=== PATIENT | male | born 1960 | race African-American/Black ===

== ENCOUNTER 2016-07-08 10:19 | Observation (INO) | payer BC ==
[~2016-07-08] VITALS: Ht 188 cm; Wt 147.6 kg
[2016-07-08] VITALS (7 sets, daily range): BP systolic 136–170; BP diastolic 77–93; PULSE 64–82; RESP 18–20; TEMP 97.8–98.1; O2SAT 95–96
[~2016-07-08 10:19] MED LIST: ALLO300T2 PO; ATOR10TA PO; COLC1TAB7 PO; DICL75 PO; DOXA1 PO; METO50CR PO; PRIL20TA2 PO; SERO50TA PO; ZITH250T PO; ZOFR4TAB3 SL
[2016-07-08] MEDS: NS 1000P @30 MLS/HR (KVO) IV SCH (10:45)
[2016-07-08] MEDS ORDERED: ASPIRIN EC 81 MG TABEC PO SCH (10:45)
[2016-07-08] MEDS ORDERED: SACU1TAB PO (11:21)
[2016-07-08] MEDS ORDERED: ATOR40TA16 PO (11:21)
[2016-07-08] MEDS ORDERED: METO50TA11 PO (11:21)
[2016-07-08] MEDS ORDERED: CLOM50TA2 (11:21)
[2016-07-08] MEDS ORDERED: AMLO5TAB2 PO (11:21)
[2016-07-08 11:42] LABS: AUTOMATED NEUTROPHIL # 3.3 TH/MM3 (1.8-7.7); BASOPHIL % 0.5 % (0.0-2.0); EOSINOPHIL # 0.1 TH/MM3 (0-0.4); EOSINOPHIL % 2.6 % (0.0-4.0); HEMATOCRIT 45.9 % (39.0-51.0); HEMO FLAGS DIFF FINAL; LYMPH % 23.9 % (9.0-44.0); LYMPHOCYTE # 1.3 TH/MM3 (1.0-4.8); MEAN CELL VOLUME 84.6 FL (80.0-100.0); MEAN CORPUSCULAR HEMOGLOBIN 27.4 PG (27.0-34.0); MEAN CORPUSCULAR HGB CONC 32.4 % (32.0-36.0); PLATELET COUNT 224 TH/MM3 (150-450); RED BLOOD COUNT 5.43 MIL/MM3 (4.50-5.90); RED CELL DISTRIBUTION WIDTH 16.1 % (11.6-17.2); WHITE BLOOD COUNT 5.3 TH/MM3 (4.0-11.0)
[2016-07-08 11:51] LABS: APTT (PATIENT) 27.5 SEC (24.3-30.1); INTERNATIONAL NORMALIZED RATIO 1.1 RATIO
[2016-07-08 12:01] LABS: POTASSIUM 3.9 MEQ/L (3.5-5.1)
[2016-07-08] MEDS ORDERED: HEPARIN-NS/PF INJ 500 ML ONE (12:34)
[2016-07-08] MEDS ORDERED: HEPARIN SODIUM - IV 10,000 UNITS/10 ML VIAL ONE (13:06)
[2016-07-08] MEDS ORDERED: MIDAZOLAM HCL 2 MG/2 ML VIAL ONE (13:07)
[2016-07-08] MEDS ORDERED: CLOPIDOGREL 300 MG TAB ONE (13:17)
[2016-07-08] MEDS ORDERED: BACITRACIN OINT 0.9 GM PKT TOP ONE (13:30)
[2016-07-08] MEDS ORDERED: SODIUM CHLORIDE 0.9% FLUSH 10 ML FLUSH IV FLUSH PRN (13:30)
[2016-07-08] MEDS ORDERED: MISC INFORMATION XX ONE (13:30)
[2016-07-08] MEDS ORDERED: CLOPIDOGREL 300 MG TAB PO ONE (13:30)
[2016-07-08] MEDS ORDERED: TIROFIBAN INFUSION INJ 250 ML IV ONE (13:30)
--- NOTE | 2016-07-08 13:33 | CATHPROC ---
SPIRIT Navigation HIS Report Study Information Study Number Admission Scheduled Start Study Start 0904-07/08/2016 07/08/2016 Jul 08 2016 12:03PM Study Type [place] Service Left Heart Cath Cardiac Catheterization Referring Institution Admit Source Facility Department 1 Other [facility] - Police Communications Operator Physician and Clinical Staff Initial Avery Dumont Assistant Restaurant General Manager Meena Avendaño,RN Recorder Meena Sanford,RT(R) Scrub Marcin Rico RCIS(BS) Procedures Performed Procedure Location (Site) Vessel Name Coronary Angiograms LCA Left Coronary Coronary Angiograms RCA Right Coronary LV Gram-hand inj. LV LV Ventricle Stent OM1 Prox CIRC Wire insertion Fem Art (right) Femoral Art Wire insertion Fem Vein (right) Femoral Vein Equipment Time Rat Exterminator Description Size Mfg Part Number Used/Scraped 13:11 Periscope CRITICAL CARE WIRE, [email or web address] PROWATER 180CM 180CM [id number] Used 12:21 DAWSON [place] SWAN VERONIQUE CATHETER FR 7 [id number] Used TRANSDUCER, TRUWAVE 12:21 DAWSON FOUNTAIN * [id number] Used W/STOCKCOCK TRANSDUCER, TRUWAVE 12:21 DAWSON FOUNTAIN * [id number] Used W/STOCKCOCK 12:21 [employer] INDUSTRIES PACK, CCL CUSTOM * [id number] Used 12:21 [employer] PACER PEN, SKIN DUAL W/ RULER * [id number] Used [id number] 13:14 [employer] STENT, 3.0 9 INTEGRITY 3.0 9 Used *[id number] STENT, 3.0 9 RESOLUTE [id number] 13:12 MEDTRONIC 3.0 9 Used INTEGRITY RX *[id number] 13:15 [employer] MEDICAL 30 LY INDEFLATOR Used *[id number] 13:05 [employer] MEDICAL SHEATH, FR6.5 PRELUDE 11CM FR 6.5 [id number] Used *[id number] 12:21 [employer] MEDICAL WIRE, 3MMJ .035 180CM 180CM [id number] Used [id number] 12:21 NAMIC MANIFOLD, 2 PORT * Used *[id number] 12:21 NAMIC MANIFOLD, 4 PORT * Used *[id number] 12:48 [employer] OMNIPAQUE, 300 MG, 100ML 100ML [id number] Used 12:51 [employer]ED OMNIPAQUE, 300 MG, 100ML 100ML [id number] Used 12:51 [employer] OMNIPAQUE, 300 MG, 100ML 100ML [id number] Used 12:21 [employer]ED OMNIPAQUE, 350 MG, 100ML 100ML [id number] Used 12:21 [employer] BLANKET,WARM AIR CCL * [id number] Used 12:21 TERUMO MEDICAL SHEATH, FR4 TERUMO (10CM) FR 4 [id number] Used 12:52 [employer]UMO MEDICAL SHEATH, FR5 TERUMO (10CM) FR 5 [id number] Used 12:21 [employer]UMO MEDICAL SHEATH, FR7 TERUMO (10CM) FR 7 [id number] Used Equipment Model, Serial, Lot Number and Expiration Data Description Model Number Serial Number Lot Number Expiration Date SHEATH, FR6.5 PRELUDE 11CM [id number] 03-31-2019 STENT, 3.0 9 INTEGRITY [id number] 08-28-2017 History: Current Medications Medication Dosage/Unit Route Frequency Last Date/Time Taken ASA Statins (any) LOPRESSOR NORVASC History: Allergies Allergy Reaction Penicillin UNKNOWN History: Risk Factors Family History of Hypertension Dyslipidemia Previous [place] Previous Heart Failure Premature CAD Yes Yes No No No Prior Valve Prior PCI Prior CABG Surgery No No No Cerebrovascular Peripheral Artery Chronic Lung On Dialysis Diabetes Disease Disease Disease No No No No No History: Stress Tests Stress or Imaging Studies Performed Yes Standard Exercise Stress Test No Stress Echo No Stress Test SPECT Stress Test SPECT Result Stress Test SPECT Ischemia Risk/Extent Yes Positive High Stress Test CMR No Cardiac CTA Coronary Calcium Score No No History: Other Current Smoker No Labs Hgb (g/dl) Hct (%) RBC (MIL/MM3) WBC (l/cumm) Platelets (thousands) 12.00-18.00 37.00-55.00 4.80-6.20 4.80-10.80 140.00-450.00 14.9 45.9 5.4 5.3 224 Glucose (mg/dl) BUN (mg/dl) Creatinine (mg/dl) BUN:Creatinine (1:x) 60.00-110.00 8.00-20.00 0.10-9.00 10.00-20.00 101 11 1.5 7.3 Na (meq/l) K (meq/l) Cl (meq/l) CO2 (mmol/L) Ca (mg/dl) 138.00-146.00 3.80-5.10 101.00-111.00 23.00-30.00 9.00-10.50 141 3.9 106 28 8.9 PT (sec) INR (PTT:PT) 9.40-11.40 0.50-2.00 12 1.1 CPK-MB (ng/ML) 0.00-7.00 Not Drawn Medication Medication Total Dose (Bolus/Oral) Medication Total Dosage/Unit 1% XYLOCAINE 20 mL AGGRASTAT BOLUS 74 meq/kg ASPIRIN 81 mg HEPARIN 1300 units PLAVIX 600 mg VERSED 2 mg Medications (Bolus/Oral) Medication Time Given Dosage/Unit Administered By Reason 1% XYLOCAINE 07/08/2016 12:49:24 PM 20 mL Avery Naqvi 20 mL 1% XYLOCAINE given in lab by Avery Naqvi in Right Groin via Subcutaneous. HEPARIN 07/08/2016 1:07:49 PM 1300 units Meena Avendaño 1300 units HEPARIN given in lab by Meena Avendaño RN via Peripheral IV. VERSED 07/08/2016 1:08:30 PM 2 mg Meena Avendaño 2 mg VERSED given in lab by Meena Avendaño RN via Peripheral IV. PLAVIX 07/08/2016 1:28:32 PM 600 mg Meena Avendaño 600 mg PLAVIX given in lab by Meena Avendaño RN via Oral. ASPIRIN 07/08/2016 1:28:53 PM 81 mg Meena Avendaño 81 mg ASPIRIN given in lab by Meena Avendaño RN via Subcutaneous. AGGRASTAT BOLUS 07/08/2016 1:29:02 PM 74 meq/kg Meena Avendaño 74 meq/kg AGGRASTAT BOLUS given in lab by Meena Avendaño RN via Peripheral IV. Amount given = 65602. 2 meq. Medication (Drip) Medication Time Given Dosage/Unit Concentration/Unit Diluent (ml) Solution AGGRASTAT DRIP 07/08/2016 1:29:10 PM 0.149 mcg/kg/min 12.5 mg 250 NaCl .9 0.149 mcg/kg/min AGGRASTAT DRIP given in lab by Meena Avendaño RN via Peripheral IV. Pump/Drip Flow = 26.6 ml/hr using NaCl .9 with a concentration of 12.5 mg in 250 ml. IV Solutions 07/08/2016 12:27:06 PM 0 mL (IV) NaCl .9 Patient arrived on IV Solutions in Right Hand via Peripheral IV. Pump/Drip Flow = 20 ml/hr using NaCl .9. Initial Case Assessment Cardiovascular HR Rhythm NIBP Chest Pain 68 REG 153/101 0 Edema Present Skin color Skin Moderate Normal Warm Circulatory - Right Pulses Dorsalis Pedis Femoral 1 1 Scale (0,1,2,3,4,d) Circulatory - Left Pulses Dorsalis Pedis Femoral 2 1 Scale (0,1,2,3,4,d) Circulatory - Lower Extremities Color Lower Right Color Lower Left Normal Normal Neurological State Oriented to time-place- Alert Moves all extremities person Respiration - General Respiration Rate SpO2 (%) (B/min) 8 95 Final Case Assessment Cardiovascular HR Rhythm NIBP Chest Pain 75 REG 149/80 0 Edema Present Skin color Skin Moderate Normal Warm Circulatory - Right Pulses Dorsalis Pedis Femoral 2 1 Scale (0,1,2,3,4,d) Circulatory - Left Pulses Dorsalis Pedis Femoral 1 1 Scale (0,1,2,3,4,d) Circulatory - Lower Extremities Color Lower Right Color Lower Left Normal Normal Neurological State Oriented to time-place- Alert Moves all extremities person Respiration - General Respiration Rate SpO2 (%) (B/min) 10 95 Chronological Log Time Study Chronological Log 12:26:39 Patient arrived via Bed. 12:26:42 Patient Name, D.O.B, / Armband Verified By R.N. 12:26:42 Consent signed by the physician and the patient and verified by the Police Communications Operator staff. 12:26:43 Pre-op and post- op instructions given; patient acknowledges understanding of instructions. 12:26:44 Verbal Stimulation=2 Physical Stimulation=2 Airway=2 Respiration=2 TOTAL=8. (0=absent, 1=li mited, 2=present) 12:26:47 Patient has been NPO for Less than 6Hrs. 12:26:48 Skin Breakdown-NONE 12:26:49 Patient Warmer Placed on the Table. 12:26:52 A # 20 IV was noted in the Hand (right). Grade = 0 12:27:06 Patient arrived on IV Solutions in Right Hand via Peripheral IV. Pump/Drip Flow = 20 ml/hr using NaCl .9. 12:27:31 History and physical on the chart or being dictated. Assessment: Initial Case, HR=68 BPM, Rhythm=REG, ZSAY=956/101 mmhg, Chest Pain=0, Edema=Mod, Color=Normal, Skin = Warm Right Pulses: Alberto Ped=1, Femoral=1 Left Pulses: Alberto Ped=2, Femoral=1 12:27:32 Lower Right Extremities: Color=Normal Lower Left Extremities: Color=Normal Neurological: State=Alert, Ox3, PEARL Respiration: Resp=8 B/min, SpO2=95 % 12:31:33 Bilateral groins prepped with 2% chlorhexidine, and with a 3 min. waiting time. Vitals capture started with the following parameters, Patient=Adult, Interval=15 min, Initial P flyogfu=797 mmHg, 12:32:14 Deflation Rate=5 mmHg 12:32:48 HR=67 bpm, EKJW=258/96 mmhg, SpO2=96.0 %, Resp=12 B/min, Pain=0, Evette=10, Vanegas=2 12:33:27 Reference ECG taken 12:37:53 HR=75 bpm, XTYZ=064/101 mmhg, SpO2=95.0 %, Resp=11 B/min, Evette=10 12:41:13 MD paged 12:42:50 HR=67 bpm, SUGY=644/101 mmhg, SpO2=95.0 %, Resp=9 B/min, Evette=10 12:44:55 Pressure channel 1 zeroed. 12:46:17 MD arrived. 12:47:53 HR=70 bpm, UHQJ=583/94 mmhg, SpO2=94.0 %, Resp=20 B/min, Evette=10 Time Out. Correct patient, correct procedure,correct physician, ,power injector not loaded with contrast with surgical 12:48:47 team present. Time Out Concurred by MD, individual staff and GENETICS PHYSICIAN in procedure 12:49:14 Case Start 12:49:16 Verbal Stimulation=2 Physical Stimulation=2 Airway=2 Respiration=2 TOTAL=8. (0=absent, 1=li mited, 2=present) 12:49:24 20 mL 1% XYLOCAINE given in lab by Avery Naqvi in Right Groin via Subcutaneous. 12:51:16 Access site was Right Femoral Vein. 12:51:23 A wire was inserted via Fem Vein (right). 12:51:38 A SHEATH, FR5 TERUMO (10CM) FR 5 was advanced into the Fem Vein (right) using the Percutane ous technique. 12:52:32 Access site was Right Femoral Artery.RT 12:52:38 A wire was inserted via Fem Art (right). 12:52:39 A SHEATH, FR4 TERUMO (10CM) FR 4 was advanced into the Fem Art (right) using the Percutaneo us technique. 12:52:52 HR=74 bpm, IMME=332/76 mmhg, SpO2=94.0 %, Resp=10 B/min, Evette=10 12:53:32 Saturation: Site=Ao (Aorta) , O2=95.5 %, Hgb=14.9 gm/dl, Condition=Condition 1. Used in north culation. Recorded Pressure: PCW, HR=65, Condition=Condition 1 12:54:32 (Pulmonary Capillary Wedge) PCW Recorded Pressure: MPA, HR=64, Condition=Condition 1 12:54:52 (Main Pulmonary Artery) MPA 21/12/16 12:55:50 Saturation: Site=PA (Pulmonary Artery) , O2=73.2 %, Hgb=14.9 gm/dl, Condition=Condition 1. Used in calculation. Recorded Pressure: RV, HR=58, Condition=Condition 1 12:55:57 (Right Ventricle) RV Recorded Pressure: RA, HR=62, Condition=Condition 1 12:56:15 (Right Atrium) RA 12:56:53 Saturation: Site=RA (Right Atrium) , O2=71.5 %, Hgb=14.9 gm/dl, Condition=Condition 1. Used in calculation. 12:57:07 Martin Veronique Catheter Removed A JR 4.0 INFINITI CATHETER FR 4 was advanced over a wire. OMNIPAQUE, 350 MG, 100ML 100ML was us ed for 12:57:38 injections. Recorded Pressure: LV, HR=60, Condition=Condition 1 12:57:57 (Left Ventricle) LV 121/11/21 12:58:14 The LV was manually injected with 10 cc's and visualized. OMNIPAQUE, 350 MG, 100ML 100ML us ed. 12:58:26 HR=67 bpm, HJPK=695/71 mmhg, SpO2=93.0 %, Resp=22 B/min, Evette=10 Recorded Pressure: LV, Ao, HR=68, Condition=Condition 1 12:58:27 (Left Ventricle) LV 115/8/9, (Aorta) Ao 112/73/90 12:59:03 The RCA was injected and visualized at various angles. OMNIPAQUE, 350 MG, 100ML 100ML used . Recorded Pressure: Ao, HR=62, Condition=Condition 1 12:59:13 (Aorta) Ao 110/77/93 13:00:01 Catheter was removed A JL 5.0 INFINITI CATHETER FR 4 was advanced over a wire. OMNIPAQUE, 350 MG, 100ML 100ML was us ed for 13:00:03 injections. 13:01:24 The LCA was injected and visualized at various angles. OMNIPAQUE, 350 MG, 100ML 100ML used . 13:02:11 Catheter was removed 13:03:21 HR=70 bpm, SHKZ=813/79 mmhg, SpO2=94.0 %, Resp=19 B/min, Evette=10 A SHEATH, FR6.5 PRELUDE 11CM FR 6.5 was exchanged in the Fem Art (right). This was necessary in order to 13:07:39 accomodate a larger catheter. 13:07:49 1300 units HEPARIN given in lab by Meena Avendaño, MARCIAL via Peripheral IV. 13:07:51 HR=69 bpm, CTAJ=775/70 mmhg, SpO2=95.0 %, Resp=12 B/min, Evette=10 13:08:30 2 mg VERSED given in lab by Meena Avendaño, RN via Peripheral IV. A XB 4.0 GUIDE CATHETER FR 6 was advanced over a wire. OMNIPAQUE, 350 MG, 100ML 100ML was used for 13:10:26 injections. 13:10:57 A WIRE, ASAHI PROWATER 180CM 180CM was inserted via Fem Art (right). 13:13:21 HR=70 bpm, LIGH=017/85 mmhg, SpO2=95.0 %, Resp=18 B/min, Evette=10 13:14:06 Interventional wire has crossed the lesion An STENT, 3.0 9 INTEGRITY 3.0 9 Bare Metal Stent was inserted through a XB 4.0 GUIDE CATHETER F R 6 over a 13:14:16 WIRE, ASAHI PROWATER 180CM 180CM. A STENT, 3.0 9 INTEGRITY 3.0 9 was deployed using a 30 LY INDEFLATOR at 14 atmospheres for 30 seconds in the 13:14:57 OM1 Prox. 13:16:02 Delivery device removed 13:17:20 Wire removed 13:17:23 Catheter was removed 13:17:34 Case End 13:17:49 HR=76 bpm, QXLX=057/89 mmhg, SpO2=96.0 %, Resp=7 B/min, Evette=10 13:18:23 ACT (Normal Range 90-180) = 263 Assessment: Final Case, HR=75 BPM, Rhythm=REG, DGBH=289/80 mmhg, Chest Pain=0, Edema=Mod, Color =Normal, Skin = Warm Right Pulses: Alberto Ped=2, Femoral=1 Left Pulses: Alberto Ped=1, Femoral=1 13:22:53 Lower Right Extremities: Color=Normal Lower Left Extremities: Color=Normal Neurological: State=Alert, Ox3, [place]AR[place] Respiration: Resp=10 B/min, SpO2=95 % 13:22:54 HR=75 bpm, GOHD=648/80 mmhg, SpO2=97.0 %, Resp=8 B/min, Evette=10 13:28:32 HR=74 bpm, YTXI=605/90 mmhg, SpO2=97.0 %, Resp=9 B/min, Evette=10 13:28:32 600 mg PLAVIX given in lab by Meena Avendaño, MARCIAL via Oral. 13:28:49 Vitals capture stopped. 13:28:53 81 mg ASPIRIN given in lab by Meena Avendaño, MARCIAL via Subcutaneous. 13:29:02 74 meq/kg AGGRASTAT BOLUS given in lab by Meena Avendaño, RN via Peripheral IV. Amount give n = 69753.2 meq. 0.149 mcg/kg/min AGGRASTAT DRIP given in lab by Meena Avendaño, MARCIAL via Peripheral IV. Pump/Drip Flow = 26.6 13:29:10 ml/hr using NaCl .9 with a concentration of 12.5 mg in 250 ml. 13:30:07 Catheter(s) removed without difficulty 13:30:09 In the Fem Art (right) the SHEATH, FR6.5 PRELUDE 11CM FR 6.[address] by Marcin Marie RCIS(BS). 13:30:26 In the Fem Vein (right) the SHEATH, FR5 TERUMO (10CM) FR [address] by Marcin Rico RCIS(BS). 13:30:42 Sterile dressing applied to site 13:30:43 No case complications noted. 13:30:44 Cine recording checked. 13:30:45 Bedside Report will be given. 13:30:46 Implantable Device card placed in patient's chart. 13:30:52 Contrast Scanned 13:30:55 A Left and Right Heart Cath was performed. 13:31:09 Patient moved to stretcher 13:31:11 Clinical correlaton risk stratification. End Study - Contrast Media Used In Study Contrast Total Opened (mL) Total Used (mL) Total Wasted (mL) Omnipaque 100 100 0 End Study - Maximum Contrast Load Max Contrast Load (mL) 496.1 End Study - Radiation Exposure Fluoro Time (minutes) 4.7 End Study - Patient Disposition Complications Transferred To Interventional Outcome No Outpatient Bed successful
[2016-07-08] MEDS ORDERED: ASPIRIN 81 MG CHEW TAB ONE (13:35)
[2016-07-08] MEDS: TIROFIBAN INFUSION INJ 250 ML IV SCH ×2 (13:45→22:38)
[2016-07-08] MEDS ORDERED: IOHEXOL 350 MG/ML 50 ML BTL (for Cath Lab) OTHER ONE (14:35)
--- NOTE | 2016-07-08 19:57 | EKG ---
Date Performed: 07/08/2016 Time Performed: 11:35:04 PTAGE: 56 years EKG: Sinus rhythm Anterior T wave changes are nonspecific Borderline ECG NO PREVIOUS TRACING DOCTOR: Loraine Hayes Interpretating Date/Time 07/08/2016 19:56:35
[2016-07-08] MEDS ORDERED: ATORVASTATIN 10 MG TAB PO SCH (21:00)
[2016-07-08] MEDS: SODIUM CHLORIDE 0.9% FLUSH 10 ML FLUSH IV FLUSH SCH (21:00)
[2016-07-08] MEDS: CARVEDILOL 3.125 MG TAB PO SCH (21:25)
[2016-07-09] VITALS (11 sets, daily range): BP systolic 125–143; BP diastolic 66–91; PULSE 54–79; RESP 18; TEMP 98–98.7; O2SAT 93–96
[2016-07-09 04:50] LABS: AUTOMATED NEUTROPHIL # 5.6 TH/MM3 (1.8-7.7); BASOPHIL % 0.5 % (0.0-2.0); EOSINOPHIL # 0.2 TH/MM3 (0-0.4); EOSINOPHIL % 2.2 % (0.0-4.0); HEMATOCRIT 43.2 % (39.0-51.0); HEMO FLAGS DIFF FINAL; LYMPH % 17.5 % (9.0-44.0); LYMPHOCYTE # 1.4 TH/MM3 (1.0-4.8); MEAN CELL VOLUME 83.5 FL (80.0-100.0); MEAN CORPUSCULAR HEMOGLOBIN 27.4 PG (27.0-34.0); MEAN CORPUSCULAR HGB CONC 32.9 % (32.0-36.0); MONO % 9.1 % (0.0-8.0); NEUT % 70.7 % (16.0-70.0); PLATELET COUNT 227 TH/MM3 (150-450); RED BLOOD COUNT 5.17 MIL/MM3 (4.50-5.90); WHITE BLOOD COUNT 7.9 TH/MM3 (4.0-11.0)
[2016-07-09 05:04] LABS: BICARBONATE 25.4 MEQ/L (21.0-32.0); POTASSIUM 3.6 MEQ/L (3.5-5.1)
[2016-07-09 05:07] LABS: HDL CHOLESTEROL 26.3 MG/DL (40.0-60.0)
[2016-07-09 05:21] LABS: CKMB 3.5 NG/ML (0.5-3.6)
[2016-07-09] MEDS ORDERED: PANTOPRAZOLE SOD 20 MG DELAYED RELEASE TAB PO ONE (08:15)
[2016-07-09] MEDS: SODIUM CHLORIDE 0.9% FLUSH 10 ML FLUSH IV FLUSH SCH (08:44)
[2016-07-09] MEDS: CARVEDILOL 3.125 MG TAB PO SCH (08:44)
[2016-07-09] MEDS ORDERED: ASPIRIN 81 MG CHEW TAB PO SCH (09:00)
[2016-07-09] MEDS ORDERED: CLOPIDOGREL 75 MG TAB PO SCH (09:00)
[2016-07-09] MEDS ORDERED: RAMIPRIL 2.5 MG CAP PO SCH (09:00)
[2016-07-09] MEDS: NS 1000P @30 MLS/HR (KVO) IV SCH (10:45)
[2016-07-09] MEDS ORDERED: PLAV75TA29 PO (12:48)
--- NOTE | 2016-07-09 15:47 | EKG ---
Date Performed: 07/08/2016 Time Performed: 13:55:18 PTAGE: 56 years EKG: Sinus rhythm Anterior T wave changes are nonspecific Borderline ECG PREVIOUS TRACING : 07/08/2016 11.35 Compared to prior tracing no significant change DOCTOR: Avery Naqvi Interpretating Date/Time 07/09/2016 15:44:58
--- NOTE | 2016-07-09 15:48 | EKG ---
Date Performed: 07/09/2016 Time Performed: 06:26:06 PTAGE: 56 years EKG: Sinus rhythm Anterolateral T wave changes are nonspecific Borderline ECG PREVIOUS TRACING : 07/08/2016 13.55 Compared to prior tracing no significant change DOCTOR: Avrey Naqvi Interpretating Date/Time 07/09/2016 15:45:06
--- NOTE | 2016-07-09 19:14 | MR ---
cc: TIMMY PEARSON M.D. DATE: 07/09/2016. PROCEDURES PERFORMED: 1. Right heart catheterization. 2. Left heart catheterization. 3. Left ventriculography. 4. Coronary angiography. 5. Direct percutaneous coronary intervention with bare-metal stent of the proximal first obtuse marginal vessel. INDICATIONS FOR THE PROCEDURE: Cardiomyopathy, congestive heart failure, high-risk nuclear stress test, unstable angina, [place] Cardiovascular Society class IV angina and [place] Heart Association class IV congestive heart failure. DESCRIPTION OF THE PROCEDURE IN DETAIL: The patient was brought to the cardiac catheterization laboratory and prepped and draped in the usual sterile fashion. 10 cc of 1% lidocaine was used to locally anesthetize the right common femoral artery. A 4-Argentine sheath was placed in the right common femoral artery and a 5-Argentine sheath placed in the right common femoral vein. Right heart catheterization was performed first with the following findings: Wedge pressure was 26/24-21. PA pressure 23/10-17. RV pressure 28/2-8. RA pressure 17/12-9. The FA sat was 95.5% on room air. The PA sat was 73.2%. The RA sat was 71.5%. The cardiac output by Anthony was 7.4 liters per minute. Cardiac index by Anthony was 2.8 liters per meters squared per minute. SVR is 874 dynes. Left heart catheterization was then performed with a 4-Argentine JR4 and JL5 diagnostic catheters with the following findings: LV pressure was 110/10-15. Ejection fraction 45%. Mild left ventricular enlargement fluoroscopically. The right coronary artery is dominant and has mild diffuse disease in the proximal to mid-segment up to 10% to 20% angiographically. 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 The left main coronary artery has no significant disease angiographically. The left circumflex vessel has mild diffuse disease in the proximal segment up to 10% angiographically. The mid-segment has a focal 40% to 50% stenosis. There is a medium-sized ramus intermedius vessel which has an ostial 30% to 40% stenosis and proximal to mid 40% stenosis. It is a medium-sized vessel. The first obtuse marginal vessel comes off the proximal to mid AV groove of the left circumflex and has a proximal 95% stenosis. It is a 3.0 mm diameter vessel. The left anterior descending has a long tubular 50% stenosis in the mid segment. Just beyond a small diagonal artery, there is a 60% stenosis. The first diagonal artery is a small vessel, probably 1.5 mm in diameter with a 95% proximal stenosis. The second diagonal artery is a small to medium-sized vessel and there is no significant obstructive disease. The left anterior descending is transapical. Also note there is a distal posterolateral artery that has off the distal left AV groove and left circumflex which has an ostial proximal 50% to 60% stenosis. DISCUSSION: At this point in time, the patient states he has resting angina, which is [place] Cardiovascular Society class IV angina. I suspect the culprit is the 95% proximal stenosis in the first obtuse marginal vessel. I cannot rule out functionally significant obstruction in the posterolateral artery and the left anterior descending. He has a creatinine of 1.45; therefore, I do think it is medically necessary to stent the culprit lesion and stage FFR evaluation of the left anterior descending and possibly the posterolateral artery on a separate occasion. Note, the patient was given 500 of normal saline bree-procedurally and prior to intervention. The patient was given 7 units / kg of heparin. ACT is 263. A 6-Argentine sheath was exchanged for a 4-Argentine sheath. A 6-Argentine XB 4.0 guide 0.014 Prowater guidewire and a 3.0 x 9 Integrity stent were placed across the lesion in the first obtuse marginal vessel. Note, there was complete obstruction of the contrast flow around the stent while it was positioned across the lesion suggesting high-grade lesion. I needed 14 atmospheres of pressure to fully deploy the stent due to vessel noncompliance. The stenosis went from 95% to 0% with SURESH III flow. The patient did have his chest pain reproduced with balloon inflation completely relieved after balloon deflation. CONCLUSIONS: 1. [place] Cardiovascular Society class IV unstable angina, culprit 95% stenosis in the proximal obtuse marginal vessel as detailed above. 2. Moderate to severe disease in the left anterior descending and posterolateral arteries as detailed above up to 50% to 60% angiographically. 3. Mildly reduced left ventricular systolic function of 45%. 4. 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 5. The patient was given 100 cc of contrast throughout the entire procedure and pre-treated with 500 of normal saline. RECOMMENDATIONS: 1. Recommend 600 of Plavix p.o. load and then 75 milligrams a day for twelve to fifteen months. 2. Aspirin 162 daily. 3. Will bolus with another 500 cc of normal saline. 4. Also note, the pressure wave forms were very difficult to interpret due to a significant respiratory variation with inspiration and expiration. LV pressures were as low as 5 and 8 with inspiration and as high as low 20s with expiration therefore making determination of the pressures difficult. 5. Otherwise, recommend medical management of coronary artery disease and cardiac risk factor modification. MD TERRANCE Saldivar/AMARILYS /1:25 PM /6:53 PM
== END 2016-07-09 13:20 | disposition home or self-care (01) ==
LOC: HDOC 10:19 → HDIC 10:23 → HDOC 16:18 → HSDI 16:18 → HCIS 16:35
PROVIDERS: ADMIT Internal Medicine Interventional Cardiology; ATTEND Internal Medicine Interventional Cardiology
DX: I25.110 Atherosclerotic heart disease of native coronary artery with unstable angina pectoris (principal); I11.0 Hypertensive heart disease with heart failure; I50.9 Heart failure, unspecified; I42.9 Cardiomyopathy, unspecified; I27.2 Other secondary pulmonary hypertension; M10.9 Gout, unspecified
CPT/HCPCS: 80048; 80061; 82550; 82552; 82810; 85002; 85025; 85610; 85730; 92920; 92928; 93005; 93460; C1769; C1876; C1887; C1893; G0378; J1644; J2250; J3246; J7030; Q9967

== ENCOUNTER 2016-07-28 10:21 | Day surgery (SDC) | payer BC ==
[~2016-07-28] VITALS: Ht 188 cm; Wt 150.3 kg
[~2016-07-28 10:21] MED LIST changes: -ALLO300T2 PO; +AMLO5TAB2 PO; -ATOR10TA PO; +ATOR40TA16 PO; +CLOM50TA2; -COLC1TAB7 PO; -DICL75 PO; -DOXA1 PO; -METO50CR PO; +METO50TA11 PO; +PLAV75TA29 PO; -PRIL20TA2 PO; +SACU1TAB PO; -SERO50TA PO; -ZITH250T PO; -ZOFR4TAB3 SL
[2016-07-28] MEDS ORDERED: ASPIRIN 81 MG CHEW TAB PO SCH (11:00)
[2016-07-28] MEDS ORDERED: ALLO300T2 PO (11:12)
[2016-07-28] MEDS ORDERED: ASPI81CH CHEW (11:12)
[2016-07-28] MEDS ORDERED: FEXO15TA PO (11:12)
[2016-07-28] MEDS ORDERED: COLC1CAP3 PO (11:12)
[2016-07-28] MEDS ORDERED: BENA20TA PO (11:12)
[2016-07-28 11:22] LABS: AUTOMATED NEUTROPHIL # 3.7 TH/MM3 (1.8-7.7); BASOPHIL % 0.6 % (0.0-2.0); EOSINOPHIL # 0.2 TH/MM3 (0-0.4); EOSINOPHIL % 3.5 % (0.0-4.0); HEMATOCRIT 46.8 % (39.0-51.0); HEMO FLAGS DIFF FINAL; LYMPH % 21.5 % (9.0-44.0); LYMPHOCYTE # 1.2 TH/MM3 (1.0-4.8); MEAN CELL VOLUME 83.8 FL (80.0-100.0); MEAN CORPUSCULAR HEMOGLOBIN 26.6 PG (27.0-34.0); MEAN CORPUSCULAR HGB CONC 31.8 % (32.0-36.0); MONO % 10.6 % (0.0-8.0); NEUT % 63.8 % (16.0-70.0); PLATELET COUNT 251 TH/MM3 (150-450); RED BLOOD COUNT 5.59 MIL/MM3 (4.50-5.90); RED CELL DISTRIBUTION WIDTH 16.5 % (11.6-17.2); WHITE BLOOD COUNT 5.8 TH/MM3 (4.0-11.0)
[2016-07-28] MEDS ORDERED: AMLO5 PO (11:22)
[2016-07-28] MEDS ORDERED: DICL75TA PO (11:22)
[2016-07-28] MEDS ORDERED: SACU1TAB4 PO (11:22)
[2016-07-28] MEDS ORDERED: ZANTTAB PO (11:22)
[2016-07-28] MEDS ORDERED: CETI10CA3 (11:22)
[2016-07-28] MEDS ORDERED: DOXA1TAB35 PO (11:23)
[2016-07-28 11:25] VITALS: BP 150/89; PULSE 71; RESP 18; TEMP 98.1; O2SAT 94
[2016-07-28 11:45] LABS: BICARBONATE 27.2 MEQ/L (21.0-32.0); POTASSIUM 4.1 MEQ/L (3.5-5.1)
[2016-07-28 12:03] LABS: PROTHROMBIN TIME - PATIENT 11.4 SEC (9.8-11.6)
[2016-07-28] MEDS ORDERED: IOHEXOL 350 MG/ML 100 ML BTL (for Cath Lab) OTHER ONE (12:14)
[2016-07-28] MEDS ORDERED: ADENOSINE STRESS TEST INJ 90 MG/30 ML VIAL ONE ×2 (12:20→13:29)
[2016-07-28] MEDS ORDERED: HEPARIN-NS/PF INJ 500 ML ONE (12:20)
[2016-07-28] MEDS ORDERED: HEPARIN SODIUM - IV 10,000 UNITS/10 ML VIAL ONE (12:31)
[2016-07-28] MEDS ORDERED: MIDAZOLAM HCL 2 MG/2 ML VIAL ONE (12:41)
[2016-07-28] MEDS ORDERED: SODIUM NITROPRUSSIDE 50 MG/2 ML VIAL ONE (13:10)
[2016-07-28] MEDS: TIROFIBAN INFUSION INJ 250 ML IV SCH ×2 (13:57→19:39)
[2016-07-28] MEDS ORDERED: MISC INFORMATION XX ONE (14:00)
[2016-07-28] MEDS ORDERED: SODIUM CHLORIDE 0.9% FLUSH 10 ML FLUSH IV FLUSH PRN (14:00)
--- NOTE | 2016-07-28 14:01 | CATHPROC ---
[employer] HIS Report Study Information Study Number Admission Scheduled Start Study Start 1025-17 07/28/2016 07/28/2016 Jul 28 2016 12:15PM Study Type [place] [facility] Left Heart Cath Cardiac Catheterization Referring Institution Admit Source Facility Department 1 Other [facility] - Director Of Rehabilitation Physician and Clinical Staff Initial Avery Dumont Bleach Mixer Sherley Dawson RN Other cathlab, cathlab Recorder Meena Sanford,RT(R) Scrub Anthony Cotter RCIS(BS) Procedures Performed Procedure Location (Site) Vessel Name Coronary Angiograms LCA Left Coronary Coronary Angiograms RCA Right Coronary Drug Eluting Inflatio LAD Dist Left Coronary LV Gram-hand inj. LV LV Ventricle Stent LAD Mid Left Coronary Wire insertion Fem Art (right) Femoral Art Equipment Time Hotel Assistant Manager Description Size Mfg Part Number Used/Scraped CATHETER, FR5 SWAN VERONIQUE 12:53 DAWSON DAWSON FR 5 [id number] *[id number] Used MONITOR TRANSDUCER, TRUWAVE [id number] 12:17 DAWSON DAWSON * Used W/STOCKCOCK *[id number] *[id number] *[id number] *[id number] 12:17 Vettro INDUSTRIES PACK, CCL CUSTOM * Used *[id number] 12:17 [employer]ettro PACER PEN, SKIN DUAL W/ RULER * Used *[id number] 13:16 MEDTRONIC STENT, 3.0 12 INTEGRITY 3.0 12 Used *[id number] 13:26 MEDTRONIC STENT, 3.5 22 INTEGRITY 3.5 22 Used *[id number] 13:18 [employer] MEDICAL 30 LY INDEFLATOR Used *[id number] 12:16 [employer] MEDICAL PACK, ANGIOPLASTY * [id number] Used 12:51 [employer] MEDICAL SHEATH, FR5.5 PRELUDE 11CM FR 5 [id number] 12:17 [employer] MEDICAL SHEATH, FR6.5 PRELUDE 11CM FR 6.5 038ACT Used *[id number] 12:17 [employer] MEDICAL WIRE, 3MMJ .035 180CM 180CM Used *[id number] 12:17 NAMIC MANIFOLD, 4 PORT * Used *[id number] 12:17 [employer]COMED OMNIPAQUE, 350 MG, 150ML 150ML [id number] Used [id number] 12:17 [facility] BLANKET,WARM AIR CCL * Used *[id number] 13:02 [place] PRIME WIRE, VERRATA 185CM 185CM [id number] *[id number] Used Equipment Model, Serial, Lot Number and Expiration Data Description Model Number Serial Number Lot Number Expiration Date PRIME WIRE, VERRATA 185CM [id number] 05-30-2019 STENT, 3.0 12 INTEGRITY [id number] 03-18-2018 STENT, 3.5 22 INTEGRITY [id number] 05-14-2017 History: Current Medications Medication Dosage/Unit Route Frequency Last Date/Time Taken Beta Jamil ASA PLAVIX History: Allergies Allergy Reaction Penicillin UNKNOWN History: Risk Factors Family History of Hypertension Dyslipidemia Previous NC Previous Heart Failure Premature CAD Yes Yes Yes No Yes Prior Valve Prior PCI Prior PCIDate Prior CABG Surgery No Yes 07/08/2016 No Cerebrovascular Peripheral Artery Chronic Lung On Dialysis Diabetes Disease Disease Disease No No No No No History: Symptoms/Diagnosis Selection Items SOB History: CV Disease Selection Items Known CAD History: Stress Tests Stress or Imaging Studies Performed No History: Other Disease Selection Items HTN History: Other Current Smoker No Labs Hgb (g/dl) Hct (%) WBC (l/cumm) Platelets (thousands) 12.00-18.00 37.00-55.00 4.80-10.80 140.00-450.00 14.9 46.8 5.8 251 Glucose (mg/dl) BUN (mg/dl) Creatinine (mg/dl) BUN:Creatinine (1:x) 60.00-110.00 8.00-20.00 0.10-9.00 10.00-20.00 107 15 1.5 10 Na (meq/l) K (meq/l) 138.00-146.00 3.80-5.10 141 4.1 CPK-MB (ng/ML) 0.00-7.00 Not Drawn Medication Medication Total Dose (Bolus/Oral) Medication Total Dosage/Unit 1% XYLOCAINE 20 mL AGGRASTAT BOLUS 75 mL FENTANYL 25 mcg HEPARIN 9000 units VERSED 2 mg Medications (Bolus/Oral) Medication Time Given Dosage/Unit Administered By Reason VERSED 07/28/2016 12:43:34 PM 1 mg Sherley Dawson 1 mg VERSED given by Sherley Dawson, MARCIAL via Peripheral IV. Ordered by Avery Naqvi. FENTANYL 07/28/2016 12:44:39 PM 25 mcg Sherley Dawson 25 mcg FENTANYL given by Sherley Dawson RN via Peripheral IV. Ordered by Avery Naqvi. VERSED 07/28/2016 12:48:03 PM 1 mg Sherley Dawson 1 mg VERSED given by Sherley Dawson RN via Peripheral IV. Ordered by Avery Naqvi. 1% XYLOCAINE 07/28/2016 12:50:06 PM 20 mL Avery Naqvi 20 mL 1% XYLOCAINE given by Avery Naqvi in Right Groin via Subcutaneous. Ordered by Mack Naqvi. HEPARIN 07/28/2016 1:00:27 PM 9000 units Sherley Dawson 9000 units HEPARIN given by Sherley Dawson RN via Peripheral IV. Ordered by Avery Naqvi. AGGRASTAT BOLUS 07/28/2016 1:44:47 PM 75 mL Sherley Dawson 75 mL AGGRASTAT BOLUS given in lab by Sherley Dawson RN via Peripheral IV. Ordered by Lucero Naqvi rtiram. Medication (Drip) Medication Time Given Dosage/Unit Concentration/Unit Diluent (ml) Solution ADENOSINE DRIP 07/28/2016 1:07:43 PM 112.197 mcg/kg/min 90 mg 90 NaCl .9 112.197 mcg/kg/min ADENOSINE DRIP given by Sherley Dawson RN via Peripheral IV. Pump/Drip Flow = 999 ml/hr using NaCl .9 with a concentration of 90 mg in 90 ml. Ordered by Avery Naqvi. ADENOSINE DRIP 07/28/2016 1:22:04 PM 999 mL 999 mL ADENOSINE DRIP given in lab by Sherley Dawson RN via Peripheral IV. Ordered by Lucero Naqvi rtiram. ADENOSINE DRIP 07/28/2016 1:37:53 PM 999 mL/hr 90 mL 90 NaCl .9 999 mL/hr ADENOSINE DRIP given in lab by Sherley Dawson RN via Peripheral IV. Pump/Drip Flow = 99 9 ml/hr using NaCl .9 with a concentration of 90 mL in 90 ml. Ordered by Avery Naqvi. AGGRASTAT DRIP 07/28/2016 1:46:14 PM 0.152 mcg/kg/min 12.5 mg 250 NaCl .9 0.152 mcg/kg/min AGGRASTAT DRIP given in lab by Sherley Dawson RN via Peripheral IV. Pump/Drip Fl ow = 27 ml/hr using NaCl .9 with a concentration of 12.5 mg in 250 ml. Ordered by Avery Naqvi. IV Solutions 07/28/2016 12:17:46 PM 0 mL (IV) 500 NaCl .9 IV Solutions given by Sherley Dawson RN in Left Antecubital via Peripheral IV. Pump/Drip Flow = 2 0 ml/hr using NaCl .9. Ordered by Avery Naqvi. NIPRIDE 07/28/2016 1:10:56 PM 200 meq 200 meq NIPRIDE given in lab by Avery Naqvi via Intra-arterial. Ordered by Avery Naqvi. Initial Case Assessment Cardiovascular HR NIBP 74 179/106 Edema Present Skin color Skin None Normal Warm Dry Neurological State Oriented to time-place- Alert Moves all extremities person Respiration - General Respiration Rate SpO2 (%) (B/min) 10 94 Initial Case Assessment Cardiovascular HR NIBP 94 173/115 Edema Present Skin color Skin Severe Normal Warm Circulatory - Right Pulses Dorsalis Pedis Femoral 1 2 Scale (0,1,2,3,4,d) Circulatory - Left Pulses Dorsalis Pedis Femoral 1 2 Scale (0,1,2,3,4,d) Circulatory - Lower Extremities Color Lower Right Color Lower Left Normal Normal Neurological State Oriented to time-place- Alert Moves all extremities person Respiration - General Respiration Rate SpO2 (%) (B/min) 18 96 Chronological Log Time Study Chronological Log 12:14:42 Patient arrived via Bed. 12:14:42 Patient Name, D.O.B, / Armband Verified By R.N. 12:14:43 Consent signed by the physician and the patient and verified by the Director Of Rehabilitation staff. 12:14:51 Pre-op and post- op instructions given; patient acknowledges understanding of instructions. 12:15:00 Patient has been NPO for More than 6Hrs. 12:15:01 Skin Breakdown-NONE Vitals capture started with the following parameters, Patient=Adult, Interval=15 min, Initial P dkmeljd=003 mmHg, 12:16:37 Deflation Rate=5 mmHg 12:17:09 NIBP STAT measurement started. 12:17:24 HR=74 bpm, DAEG=767/106 mmhg, SpO2=94.0 %, Resp=10 B/min, Pain=0, Evette=10, Vanegas=2 12:17:45 Radha Prominences Protected 12:17:46 A # 20 IV was noted in the Antecubital (left). Grade = 0 IV Solutions given by Sherley Dawson, RN in Left Antecubital via Peripheral IV. Pump/Drip Fl ow = 20 ml/hr using 12:17:46 NaCl .9. Ordered by Avery Naqvi. 12:17:47 History and physical on the chart or being dictated. Assessment: Initial Case, HR=74 BPM, RPVS=437/106 mmhg, Edema=None, Color=Normal, Skin = Warm, Dry 12:17:48 Neurological: State=Alert, Ox3, PEARL Respiration: Resp=10 B/min, SpO2=94 % 12:22:21 HR=69 bpm, QBTM=851/114 mmhg, SpO2=95.0 %, Resp=14 B/min, Pain=0, Evette=10, Vanegas=2 Assessment: Initial Case, HR=94 BPM, VHWI=607/115 mmhg, Edema=Severe, Color=Normal, Skin = Warm Right Pulses: Alberto Ped=1, Femoral=2 Left Pulses: Alberto Ped=1, Femoral=2 12:26:07 Lower Right Extremities: Color=Normal Lower Left Extremities: Color=Normal Neurological: State=Alert, Ox3, PEAR[place] Respiration: Resp=18 B/min, SpO2=96 % 12:27:22 HR=78 bpm, LVOQ=587/115 mmhg, SpO2=97.0 %, Resp=17 B/min, Pain=0, Evette=10, Vanegas=2 12:28:04 Bilateral groins prepped with 2% chlorhexidine, and with a 3 min. waiting time. 12:31:52 Pressure channel 1 zeroed. 12:32:23 HR=73 bpm, LKHR=801/105 mmhg, SpO2=95.0 %, Resp=23 B/min, Pain=0, Evette=10, Vanegas=2 12:37:24 HR=69 bpm, TJDR=780/100 mmhg, SpO2=94.0 %, Resp=20 B/min, Pain=0, Evette=10, Vanegas=2 12:40:27 Reference ECG taken 12:40:31 MD arrived. 12:42:29 HR=71 bpm, XHXX=019/112 mmhg, SpO2=95.0 %, Resp=22 B/min, Pain=0, Evette=10, Vanegas=2 12:42:29 POWER INJECTOR LOADED BY Shayna DAWSON AND VERIFIED BY Di COTTER 12:43:34 1 mg VERSED given by Sherley Dawson RN via Peripheral IV. Ordered by Avery Naqvi. 12:44:39 25 mcg FENTANYL given by Sherley Dawson RN via Peripheral IV. Ordered by Rosario Naqvi. 12:47:24 HR=76 bpm, YJRH=840/111 mmhg, SpO2=94.0 %, Resp=21 B/min, Pain=0, Evette=10, Vanegas=2 12:48:03 1 mg VERSED given by Sherley Dawson RN via Peripheral IV. Ordered by Avery Naqvi. 12:49:56 Case Start 12:49:59 Verbal Stimulation=2 Physical Stimulation=2 Airway=2 Respiration=2 TOTAL=8. (0=absent, 1=li mited, 2=present) 12:50:06 20 mL 1% XYLOCAINE given by Avery Naqvi in Right Groin via Subcutaneous. Ordered by Avery Chen. 12:50:28 Access site was Right Femoral Artery. 12:50:33 A wire was inserted via Fem Art (right). 12:50:37 A SHEATH, FR6.5 PRELUDE 11CM FR 6.5 was advanced into the Fem Art (right) using the Percuta neous technique. 12:51:39 Access site was Right Femoral Vein. 12:51:46 A wire was inserted via Fem Art (right). 12:51:50 A SHEATH, FR5.5 PRELUDE 11CM FR 5 was advanced into the Fem Vein (right) using the Percutan eous technique. 12:52:15 HR=75 bpm, RKKK=986/96 mmhg, SpO2=92.0 %, Resp=10 B/min, Pain=0, Evette=10, Vanegas=2 12:52:19 A CATHETER, FR5 SWAN VERONIQUE MONITOR FR 5 was inserted via Fem Vein (right) Recorded Pressure: PCW, HR=73, Condition=Condition 1 12:54:05 (Pulmonary Capillary Wedge) PCW Recorded Pressure: MPA, HR=68, Condition=Condition 1 12:54:21 (Main Pulmonary Artery) MPA 33/15/24 12:54:58 Saturation: Site=Ao (Aorta) , O2=96 %, Hgb=14.9 gm/dl, Condition=Condition 1. Used in calcu lation. Recorded Pressure: RV, HR=71, Condition=Condition 1 12:55:12 (Right Ventricle) RV 36/ Recorded Pressure: RA, HR=67, Condition=Condition 1 12:55:32 (Right Atrium) RA 12:55:39 Saturation: Site=PA (Pulmonary Artery) , O2=73.5 %, Hgb=14.9 gm/dl, Condition=Condition 1. Used in calculation. 12:56:06 Saturation: Site=RA (Right Atrium) , O2=78.3 %, Hgb=14.9 gm/dl, Condition=Condition 1. Used in calculation. 12:56:34 [place] Veronique Catheter Removed A JR 4.0 INFINITI CATHETER FR 4 was advanced over a wire. OMNIPAQUE, 350 MG, 150ML 150ML was us ed for 12:56:36 injections. 12:57:20 HR=67 bpm, CUZB=563/98 mmhg, SpO2=94.0 %, Resp=24 B/min, Pain=0, Evette=10, Vanegas=2 Recorded Pressure: LV, HR=64, Condition=Condition 1 12:58:09 (Left Ventricle) LV 122/10/18 12:58:20 The LV was manually injected with 10 cc's and visualized. OMNIPAQUE, 350 MG, 150ML 150ML us ed. Recorded Pressure: LV, Ao, HR=68, Condition=Condition 1 12:58:33 (Left Ventricle) LV 127/14/23, (Aorta) Ao 127/91/107 A JR 4.0 INFINITI CATHETER FR 4 was advanced over a wire. OMNIPAQUE, 350 MG, 150ML 150ML was us ed for 12:59:02 injections. 12:59:17 The RCA was injected and visualized at various angles. OMNIPAQUE, 350 MG, 150ML 150ML used . 12:59:28 Catheter was removed A XBLAD 3.5 GUIDE CATHETER FR 6 was advanced over a wire. OMNIPAQUE, 350 MG, 150ML 150ML was us ed for 12:59:35 injections. Recorded Pressure: Ao, HR=62, Condition=Condition 1 13:00:10 (Aorta) Ao 117/82/98 13:00:27 9000 units HEPARIN given by Sherley Dawson, MARCIAL via Peripheral IV. Ordered by Lucero Naqvi rthur. 13:00:50 The LCA was injected and visualized at various angles. OMNIPAQUE, 350 MG, 150ML 150ML used . 13:02:56 HR=70 bpm, ZXBY=885/106 mmhg, SpO2=93.0 %, Resp=20 B/min, Pain=0, Evette=10, Vanegas=2 13:04:22 Flow Wire was was placed in the LAD Dist. The FFR measures 0.82 percent. The IFR measures ~I FR~ Percent. 13:07:22 HR=73 bpm, QFNN=790/107 mmhg, SpO2=94.0 %, Resp=25 B/min, Pain=0, Evette=10, Vanegas=2 112.197 mcg/kg/min ADENOSINE DRIP given by Sherley Dawson, MARCIAL via Peripheral IV. Pump/Drip F low = 999 13:07:43 ml/hr using NaCl .9 with a concentration of 90 mg in 90 ml. Ordered by Avery Naqvi. 13:10:29 ADENOSINE DISCONTINUED PER PHYSICIAN 13:10:56 200 meq NIPRIDE given in lab by Avery Naqvi via Intra-arterial. Ordered by Lucero Naqvi rthurenita. 13:12:27 HR=75 bpm, MAFC=366/111 mmhg, SpO2=90.0 %, Resp=23 B/min, Pain=0, Evette=10, Vanegas=2 Flow Wire was was placed in the LAD Dist. The FFR measures ~FFR~ percent. The IFR measures ~IFR ~ Percent. 0.83 13:14:11 FFR USED WITH NIPRIDE An STENT, 3.0 12 INTEGRITY 3.0 12 Bare Metal Stent was inserted through a XBLAD 3.[address]UE [address] FR 6 over 13:16:11 a PRIME WIRE, VERRATA 185CM 185CM. A STENT, 3.0 12 INTEGRITY 3.0 12 was deployed using a 30 LY INDEFLATOR at 14 atmospheres for 1 5 seconds in 13:17:42 the LAD Dist. 13:17:55 HR=69 bpm, QIVV=135/101 mmhg, SpO2=90.0 %, Resp=23 B/min 13:19:02 Delivery device removed 13:20:00 The LCA was injected and visualized at various angles. OMNIPAQUE, 350 MG, 150ML 150ML used . 13:20:54 Flow Wire was was placed in the LAD Mid. The FFR measures 0.84 percent. The IFR measures ~I FR~ Percent. 13:22:04 999 mL ADENOSINE DRIP given in lab by Sherley Dawson RN via Peripheral IV. Ordered by Avery Calhoun. 13:22:27 HR=73 bpm, MZGO=247/108 mmhg, SpO2=92.0 %, Resp=23 B/min, Pain=0, Evette=10, Vanegas=2 13:25:11 Activated Clotting Time Drawn An STENT, 3.5 22 INTEGRITY 3.5 22 Bare Metal Stent was inserted through a XBLAD 3.[address] FR 6 over 13:25:17 a PRIME WIRE, VERRATA 185CM 185CM. 13:27:22 HR=73 bpm, CHOS=031/94 mmhg, SpO2=90.0 %, Resp=20 B/min, Pain=0, Evette=10, Vanegas=2 A STENT, 3.5 22 INTEGRITY 3.5 22 was deployed using a 30 LY INDEFLATOR at 16 atmospheres for 1 5 seconds in 13:27:25 the LAD Mid. 13:27:45 The LCA was injected and visualized at various angles. OMNIPAQUE, 350 MG, 150ML 150ML used . 13:28:30 Flow Wire was was placed in the LAD Mid. The FFR measures 1 percent. The IFR measures ~IFR~ Percent. 13:30:39 ACT (Normal Range 90-180) = 234 13:33:06 HR=67 bpm, TMPU=053/106 mmhg, SpO2=93.0 %, Resp=21 B/min, Pain=0, Evette=10, Vanegas=2 13:37:26 HR=74 bpm, WGBG=552/102 mmhg, SpO2=94.0 %, Resp=20 B/min, Pain=0, Evette=10, Vanegas=2 999 mL/hr ADENOSINE DRIP given in lab by Sherley Dawson RN via Peripheral IV. Pump/Drip Srinivasan w = 999 ml/hr 13:37:53 using NaCl .9 with a concentration of 90 mL in 90 ml. Ordered by Avery Naqvi. 13:40:32 ADENOSINE DISCONTINUED PER PHYSICIAN 13:41:24 Wire removed 13:41:29 Catheter was removed 13:41:38 Case End 13:42:25 HR=58 bpm, JZOH=776/139 mmhg, SpO2=96.0 %, Resp=11 B/min, Pain=0, Evette=10, Vanegas=2 13:44:47 75 mL AGGRASTAT BOLUS given in lab by Sherley Dawson, MARCIAL via Peripheral IV. Ordered by Avery Calhoun. 0.152 mcg/kg/min AGGRASTAT DRIP given in lab by Sherley Dawson RN via Peripheral IV. Pump/D rip Flow = 27 13:46:14 ml/hr using NaCl .9 with a concentration of 12.5 mg in 250 ml. Ordered by Avery Naqvi. 13:47:59 HR=64 bpm, MKPH=408/149 mmhg, SpO2=94.0 %, Resp=12 B/min, Pain=0, Evette=10, Vanegas=2 13:51:28 Catheter(s) removed without difficulty 13:51:29 In the Fem Art (right) the SHEATH, FR6.5 PRELUDE 11CM FR 6.[address] by Arthur. Di Ambrosio 13:51:48 In the Fem Art (right) the SHEATH, FR5.5 PRELUDE 11CM FR [address] by Arthur. Di Naqvi 13:52:00 Sterile dressing applied to site 13:52:00 No case complications noted. 13:52:03 Case complication noted. 13:52:03 Cine recording checked. 13:52:06 Bedside Report will be given. 13:52:07 Implantable Device card placed in patient's chart. 13:52:10 Contrast Scanned 13:52:13 A Left and Right Heart Cath was performed. 13:52:15 Patient moved to stretcher 13:52:19 Clinical correlaton risk stratification. 13:52:40 Vitals capture stopped. End Study - Contrast Media Used In Study Contrast Total Opened (mL) Total Used (mL) Total Wasted (mL) Omnipaque 105 105 0 End Study - Maximum Contrast Load Max Contrast Load (mL) 494.7 End Study - Radiation Exposure Fluoro Time (minutes) 7.5 End Study - Patient Disposition Complications Transferred To Interventional Outcome No Outpatient Bed successful
[2016-07-28 16:39] VITALS: BP 152/85; PULSE 65; RESP 18; TEMP 98.3; O2SAT 95
[2016-07-28] MEDS ORDERED: ATROPINE SULFATE 1 MG/10 ML SYRINGE ONE (17:58)
[2016-07-28] MEDS ORDERED: MIDAZOLAM HCL 2 MG/2 ML VIAL IV ONE (18:16)
[2016-07-28] MEDS ORDERED: NITROGLYCERIN 2% OINT 1 GM PACKET TOPICAL ONE (18:45)
[2016-07-28 19:00] VITALS: PULSE 70
[2016-07-28] MEDS ORDERED: NITROGLYCERIN 2% OINT 1 GM PACKET TOPICAL PRN (19:30)
[2016-07-28] MEDS: SODIUM CHLORIDE 0.9% FLUSH 10 ML FLUSH IV FLUSH SCH (19:40)
[2016-07-28 19:45] VITALS: BP 145/80; PULSE 72; RESP 17; TEMP 98; O2SAT 92
[2016-07-28] MEDS ORDERED: ATORVASTATIN 10 MG TAB PO SCH (21:00)
[2016-07-28 21:55] VITALS: O2SAT 95
[2016-07-28 23:47] VITALS: BP 122/81; PULSE 61; PULSE 62; RESP 15; TEMP 98; O2SAT 96
[2016-07-29 03:39] VITALS: BP 111/42; PULSE 72; PULSE 79; RESP 15; TEMP 97.9; O2SAT 96
[2016-07-29] MEDS: TIROFIBAN INFUSION INJ 250 ML IV SCH (04:04)
[2016-07-29 04:45] LABS: BASOPHIL % 0.4 % (0.0-2.0); EOSINOPHIL # 0.2 TH/MM3 (0-0.4); EOSINOPHIL % 1.9 % (0.0-4.0); HEMATOCRIT 45.4 % (39.0-51.0); HEMO FLAGS DIFF FINAL; LYMPH % 9.6 % (9.0-44.0); LYMPHOCYTE # 0.8 TH/MM3 (1.0-4.8); MEAN CORPUSCULAR HEMOGLOBIN 26.8 PG (27.0-34.0); MEAN CORPUSCULAR HGB CONC 31.9 % (32.0-36.0); MONO % 8.3 % (0.0-8.0); NEUT % 79.8 % (16.0-70.0); PLATELET COUNT 218 TH/MM3 (150-450); WHITE BLOOD COUNT 8.8 TH/MM3 (4.0-11.0)
[2016-07-29 05:12] LABS: BICARBONATE 25.3 MEQ/L (21.0-32.0); POTASSIUM 3.9 MEQ/L (3.5-5.1)
[2016-07-29 05:15] LABS: HDL CHOLESTEROL 28.1 MG/DL (40.0-60.0)
[2016-07-29 05:29] LABS: CKMB 1.4 NG/ML (0.5-3.6)
--- NOTE | 2016-07-29 05:56 | MR ---
cc: TIMMY PEARSON M.D. DATE 07/28/2016 PROCEDURE Right heart catheterization, left heart catheterization, left ventriculography, coronary angiography, FFR x3 of the mid and distal LAD, direct PCI with bare metal stent of the wga-te-mrmoci LAD and direct PCI bare metal stent of the mid-LAD. INDICATION Severe dyspnea on exertion with minimal activities of daily living, [place] Heart Association Class III, lower extremity edema, anginal equivalent, unstable angina. [place] Cardiovascular Society Class III angina, coronary artery disease, cardiomyopathy, congestive heart failure. PROCEDURE The patient was brought to the Cardiac Catheterization Laboratory, prepped and draped in the usual sterile fashion. 10 cc of 1% lidocaine was used to locally anesthetize the right common femoral artery. A 6-Tajik sheath was placed in the right common femoral artery, a 5-Tajik sheath placed in the right common femoral vein. The right heart catheterization was performed first with the following findings: The waveforms had significant respiratory variation. Pulmonary capillary wedge pressure maximum was 29/26-23. PA pressure 33/15-24. RV pressure 36/14-17. RA pressure 22/18-16. The FA sat on room air was 96%, PA sat on room air 73.5%, RA sat on room air 78.3%. NOTE: 1 liter bolus of normal saline was initiated at that point due to the patient's chronic renal insufficiency with a creatinine of 1.4. Left heart catheterization was then performed with a 4-Tajik diagnostic JR4 catheter and a 6-Tajik XB 3.5 guide with the following findings: LV pressure is 127/15-22. Again, significant respiratory variation making determination of end-diastolic pressure difficult. Would say the maximum diastolic pressure at end-expiration was 23 and on inspiration was 17. Ejection fraction 45%. No obvious focal segmental motion abnormalities. CORONARY ANGIOGRAPHY The right coronary artery has mild disease, up to 10-20% o in the proximal mid-segment. The left main coronary artery has no significant disease angiographically. The left circumflex vessel has mild disease in the proximal segment up to 10-20% angiographically. The first obtuse marginal vessel comes off the mid-segment with small to medium-sized vessel; no significant disease angiographically. The second obtuse marginal vessel has an ostial 60 to 70% stenosis. The stent in the proximal segment is widely patent; this is a medium-sized vessel. The remainder of the circumflex vessel supplies two small posterolateral arteries with no significant disease angiographically. The LAD has a long 60% stenosis in the mid-segment and a shorter 70% stenosis in the mid to distal segment; this is a large transapical vessel that supplies the distal one-third of the inferior wall. First and second diagonal arteries are small, 1-mm vessels. The first diagonal artery has no significant disease angiographically. The second diagonal artery is subtotally occluded in the proximal segment with 95% stenosis; again it is a 1-mm vessel at most. INTERVENTION At this point in this time, the decision was made to proceed with FFR of the LAD lesions. The patient was given 60 units/kg of heparin with an ACT of 234. A 0.014 [place] pressure wire was placed into the proximal LAD. The guide catheter was thoroughly flushed with 20 cc of normal saline. Pressure waveforms were normalized. Then advanced the pressure wire into the distal LAD. The initial FFR was 0.94. The patient was infused with 140 mcg/kg/minute of adenosine for 3 minutes. Maximum FFR was 22. The patient did have shortness of breath. We then waited until the FFR re-equilibrated to baseline at 0.94, gave the patient a 200 mcg intracoronary bolus of Nipride. At that point the FFR was 0.83. DISCUSSION: Although the FFR was not quite a criteria at 0.80, due to the patient's severe dyspnea on exertion, [place] Heart Association Class III symptoms, coronary artery disease with chronic renal insufficiency, I did have a strong clinical suspicion that the LAD lesions were significant, leading to the patient's LV dysfunction and decompensated congestive heart failure. Also, the patient is extremely anxious, requiring 2 mg of Versed and 25 mcg of Fentanyl for sedation and strongly indicates to me that he does not want another procedure. Therefore I did think it was medically necessary to proceed with PCI of the mid to distal LAD. I directly placed a 3.0/12 Integrity stent at the lesion site, one inflation of 12 atmospheres for 20 seconds. The stenosis went from 70% to 0% with SURESH-3 flow. The systolic blood pressure increased from 117 systolic to 150 systolic almost immediately after stenting of the vessel. We then removed the pressure wire and did another normalization procedure with thorough flushing of the guide. I re-crossed the mid to distal LAD lesion. Again the initial FFR was 0.94. We did another adenosine challenge to assess the mid-LAD. The FFR at that point was 0.84 after three minutes of adenosine infusion. For the aforementioned reasons, I did think it was medically necessary to stent this lesion as well as it was a long lesion. Therefore I placed a 3.5/22 Integrity stent with one inflation of 17 atmospheres for 20 seconds. The stenosis went from 60% to 0% with SURESH-3 flow. I then removed the wire, placed the wire back in the proximal LAD, renormalized the pressure waveforms after 20 cc of normal saline flush of the guide catheter. Then, after normalization procedure placed the [place] pressure wire into the distal LAD. The initial FFR was 1.0. We did a third adenosine challenge with 140 mcg/kg/minute for three minutes. FFR after 3 minutes of adenosine infusion was 1.01. CONCLUSIONS 1. Sequential severe disease in the mid-LAD, as detailed above. 2. Patent stent in the obtuse marginal vessel, as detailed above. 3. Cardiomyopathy with EF of 45%. 4. Cardiac output of 7.3 liters/minute. 5. Cardiac index at 2.7 liters/minute/meter2. 6. SV of 990.7 dynes. 7. FA sats of 96%, PA sat of 73.5%, RA sat of 78.3%. 8. Successful direct PCI with bare metal stent of the mid to distal LAD from 70% to 0% with SURESH-3 flow. 9. Successful direct PCI with bare metal stent of the mid-LAD from 60% to 0% with SURESH-3 flow. 10. Improvement of FFR from 0.82 to 1.01, status post PCI of both LAD lesions. 11. Immediate increase in systolic blood pressure from 117 systolic to 150 systolic post-PCI of the LAD. RECOMMENDATIONS 1. Continue aspirin 162 daily. 2. Plavix 75 mg daily. 3. Aggrastat drip per protocol. The patient has received 1 liter of normal saline perioperatively. 4. Need to monitor his creatinine in the a.m., otherwise continue medical management of coronary artery disease, cardiac risk factor modification. MD TERRANCE Saldivar/JENN /1:50 PM /5:24 AM
[2016-07-29 07:00] VITALS: BP 135/77; PULSE 78; PULSE 85; RESP 17; TEMP 98; O2SAT 98
[2016-07-29] MEDS: SODIUM CHLORIDE 0.9% FLUSH 10 ML FLUSH IV FLUSH SCH (08:45)
--- NOTE | 2016-07-29 08:52 | EKG ---
Date Performed: 07/29/2016 Time Performed: 05:33:50 PTAGE: 56 years EKG: Sinus rhythm Anterior T wave changes are nonspecific Borderline ECG PREVIOUS TRACING : 07/28/2016 11.25 DOCTOR: Jaspal Page Interpretating Date/Time 07/29/2016 08:51:23
[2016-07-29] MEDS ORDERED: ASPI81CH CHEW (08:57)
[2016-07-29] MEDS ORDERED: CLOPIDOGREL 75 MG TAB PO SCH (09:00)
[2016-07-29] MEDS ORDERED: ASPIRIN 81 MG CHEW TAB PO SCH (09:00)
--- NOTE | 2016-07-29 09:43 | EKG ---
Date Performed: 07/28/2016 Time Performed: 11:25:04 PTAGE: 56 years EKG: Sinus rhythm . Anterior T wave changes are nonspecific Low QRS voltages in precordial leads Borderline ECG PREVIOUS TRACING : 07/09/2016 06.26 DOCTOR: Jaspal Page Interpretating Date/Time 07/29/2016 09:41:59
== END 2016-07-29 10:00 | disposition home or self-care (01) ==
LOC: HDOC 10:21 → HDIC 10:22 → HCVR 15:16 → HDOC 07-29 10:00
PROVIDERS: ATTEND Internal Medicine Interventional Cardiology
DX: I25.110 Atherosclerotic heart disease of native coronary artery with unstable angina pectoris (principal); I42.9 Cardiomyopathy, unspecified; I13.0 Hypertensive heart and chronic kidney disease with heart failure and stage 1 through stage 4 chronic kidney disease, or unspecified chronic kidney disease; N18.9 Chronic kidney disease, unspecified; I50.9 Heart failure, unspecified; I34.0 Nonrheumatic mitral (valve) insufficiency; Z95.5 Presence of coronary angioplasty implant and graft; Z88.0 Allergy status to penicillin; Z79.82 Long term (current) use of aspirin
CPT/HCPCS: 80048; 80061; 82550; 82552; 82810; 82948; 85002; 85025; 85610; 92928; 93005; 93460; 93571; C1769; C1876; C1887; C1893; J0153; J1644; J2250; J3010; J3246; J0461; Q9967